=== PATIENT | male | born 1955 | race Caucasian/White ===

== ENCOUNTER → 2021-03-09 | Outpatient (CLI) | payer OTHER ==
--- NOTE | 2021-03-09 12:56 | XR ---
EXAMINATION TYPE: XR lumbosacral spine min 4V DATE OF EXAM: 03/09/2021 COMPARISON: None HISTORY: Low back pain, numbness TECHNIQUE: 5 view lumbar spine FINDINGS: Scoliosis is present. Facet degenerative changes present. No spondylolytic defects are evid ent. Spondylosis is present. There is loss of disc height throughout the lumbar spine. Vacuum disc phenomenon is present L2-3 and L5-S1. Vertebral body heights are preserved. IMPRESSION: 1. Diffuse degenerative disc changes throughout the lumbar spine. 2. Scoliosis
== END | disposition home or self-care (01) ==
LOC: RADXRMAIN 09:23
PROVIDERS: ATTEND Family Medicine
DX: M47.816 Spondylosis without myelopathy or radiculopathy, lumbar region (principal); M41.86 Other forms of scoliosis, lumbar region
CPT/HCPCS: 72110